=== PATIENT | male | born 1970 ===

== ENCOUNTER 2023-09-02 08:45 | Inpatient (IN) | payer OTHER ==
[~2023-09-02] VITALS: Ht 165.1 cm; Wt 86.2 kg
[2023-09-02] MEDS ORDERED: AVAPRO150 MG PO (09:59)
[2023-09-02 10:16] LABS: HEMATOCRIT 44.2 % (39.0-48.0); HEMOGLOBIN 15.3 g/dL (13-16.00); MEAN CELL VOLUME 84.3 fL (80.0-100.00); MEAN CORPUSCULAR HEMOGLOBIN 29.3 pg (27.00-32.0); MEAN CORPUSCULAR HGB CONC 34.7 g/dl (32.0-36.0); PLATELET COUNT 226 K/uL (150-450); RED BLOOD COUNT 5.24 M/uL (4.00-6.00); RED CELL DISTRIBUTION WIDTH 13.8 % (11.5-14.5)
[2023-09-02 10:37] LABS: INR 0.97; PARTIAL THROMBOPLASTIN TIME 29.9 SECONDS (22.0-34.0); PROTHROMBIN TIME 10.2 SECONDS (9.0-11.5)
[2023-09-02 10:41] LABS: URINE APPEARANCE Clear; URINE BACTERIA 3.7 uL (0.0-1933); URINE BILIRRUBIN Negative (NEGATIVE); URINE BLOOD Negative; URINE COLOR Yellow; URINE EPITHELIAL CELLS 0.9 uL (0.0-38.8); URINE GLUCOSE Negative (NEGATIVE); URINE LEUKOCYTE Negative; URINE NITRATE Negative; URINE PROTEIN Negative (NEGATIVE); URINE RBC 3.3 uL (0.0-20.8); URINE UROBILINOGEN 0.2 E.U./dl; URINE WBC 2.1 uL (0.0-23.2)
[2023-09-02 10:45] LABS: BILIRUBIN TOTAL 0.33 mg/dL (0.3-1.2); CALCIUM 9.9 mg/dL (8.5-10.1); CREATININE SERUM 1.05 mg/dL (0.70-1.30); GFR 73.88; GLOBULINA 4.4 G/DL (2.4-3.5); POTASSIUM 4.79 mEq/L (3.5-5.1); TOTAL PROTEIN 8.4 gm/dL (6.4-8.2)
[2023-09-10] MEDS ORDERED: CEFTRIAXONE SODIUM 2,000 MG VIAL ONE (08:30)
[2023-09-10] MEDS ORDERED: METRONIDAZOLE/SODIUM CHLORIDE 500 MG/100 ML PIGGYBACK IV ONE ×2 (08:30→13:45)
[2023-09-10] MEDS ORDERED: CHLORHEXIDINE GLUCONATE 120 ML BOTTLE TOP ONE (12:13)
[2023-09-10] MEDS ORDERED: TAMSULOSIN HCL 0.4 MG CAP PO SCH (12:21)
[2023-09-10] MEDS ORDERED: LACTOBACILLUS ACIDOPHILUS 1 CAP CAP PO SCH (12:21)
[2023-09-10] MEDS ORDERED: ONDANSETRON HCL 2 MG/ML VIAL IV PRN (12:30)
[2023-09-10] MEDS ORDERED: MORPHINE SULFATE 4 MG/ML VIAL IV PRN (12:30)
[2023-09-10] MEDS ORDERED: RINGERS SOLUTION,LACTATED 1,000 ML IV SCH (12:30)
[2023-09-10] MEDS ORDERED: OxyCODONE HCL 5 MG TABLET (ROXICODONE) PO PRN (12:30)
[2023-09-10] MEDS ORDERED: HYOSCYAMINE SULFATE 0.125 MG TAB.SUBL SL SCH (13:00)
[2023-09-10] MEDS ORDERED: CEFTRIAXONE SODIUM 2,000 MG VIAL IV ONE (13:45)
[2023-09-10] MEDS ORDERED: METRONIDAZOLE/SODIUM CHLORIDE 500 MG/100 ML PIGGYBACK IV SCH (17:00)
[2023-09-10] MEDS ORDERED: GABAPENTIN 300 MG CAPSULE PO SCH (17:00)
[2023-09-10] MEDS ORDERED: ACETAMINOPHEN 500 MG GEL..CAP PO SCH (18:00)
[2023-09-10] MEDS ORDERED: CIPROFLOXACIN IN 5 % DEXTROSE 400 MG/200 ML PIGGYBAG IV SCH (21:00)
[2023-09-10] MEDS ORDERED: FAMOTIDINE/PF 20 MG/2 ML VIAL IV PUSH SCH (21:00)
[2023-09-11] MEDS ORDERED: IRBESARTAN 150 MG TABLET PO SCH (09:00)
[2023-09-11 09:10] LABS: HEMATOCRIT 43.8 % (39.0-48.0); HEMOGLOBIN 15.1 g/dL (13-16.00); MEAN CELL VOLUME 83.6 fL (80.0-100.00); MEAN CORPUSCULAR HEMOGLOBIN 28.8 pg (27.00-32.0); MEAN CORPUSCULAR HGB CONC 34.5 g/dl (32.0-36.0); PLATELET COUNT 200 K/uL (150-450); RED BLOOD COUNT 5.25 M/uL (4.00-6.00)
[2023-09-11 09:17] LABS: ALBUMIN 3.2 gm/dL (3.4-5.0); CALCIUM 8.8 mg/dL (8.5-10.1); CREATININE SERUM 0.99 mg/dL (0.70-1.30); GFR 79.08; PHOSPHOROUS 3.4 mg/dL (2.5-4.9); POTASSIUM 4.04 mEq/L (3.5-5.1)
[2023-09-11] MEDS ORDERED: ENOXAPARIN SODIUM 40 MG/0.4 ML SYRINGE SUBCUTANEO SCH (17:00)
[2023-09-12 07:29] LABS: CALCIUM 8.5 mg/dL (8.5-10.1); CREATININE SERUM 0.95 mg/dL (0.70-1.30); GFR 82.93; MAGNESIUM 1.9 mg/dL (1.8-2.4); PHOSPHOROUS 2.5 mg/dL (2.5-4.9); POTASSIUM 4.01 mEq/L (3.5-5.1)
[2023-09-12 07:32] LABS: HEMATOCRIT 38.5 % (39.0-48.0); HEMOGLOBIN 13.4 g/dL (13-16.00); MEAN CELL VOLUME 82.2 fL (80.0-100.00); MEAN CORPUSCULAR HEMOGLOBIN 28.5 pg (27.00-32.0); MEAN CORPUSCULAR HGB CONC 34.7 g/dl (32.0-36.0); PLATELET COUNT 180 K/uL (150-450); RED BLOOD COUNT 4.69 M/uL (4.00-6.00); RED CELL DISTRIBUTION WIDTH 13.8 % (11.5-14.5)
[2023-09-12] MEDS ORDERED: ENOXAPARIN SODIUM 40 MG/0.4 ML SYRINGE SUBCUTANEO SCH (09:00)
[2023-09-12] MEDS ORDERED: INTESTINEX680 M1 PO (14:04)
[2023-09-12] MEDS ORDERED: HYOSCYAMINE0.125 M1 SL (14:04)
[2023-09-12] MEDS ORDERED: TRAMADOL HCL50 MG PO (14:05)
[2023-09-12] MEDS ORDERED: GABAPENTIN300 M2 PO (14:06)
== END 2023-09-12 15:52 | disposition home or self-care (01) | DRG 330 ==
LOC: O/R 09-10 05:27 → SURG 09-10 07:00 → SURH 09-10 13:13
PROVIDERS: Internal Medicine Geriatric Medicine; ADMIT Surgery; ATTEND Surgery
PROC: BR4FZZZ Ultrasonography of Sacrum and Coccyx (ICD-10-PCS; 2023-09-09)
PROC: 0WQF4ZZ Repair Abdominal Wall, Percutaneous Endoscopic Approach (ICD-10-PCS; 2023-09-10)
PROC: 0DTP4ZZ Resection of Rectum, Percutaneous Endoscopic Approach (ICD-10-PCS; 2023-09-10)
PROC: 0DN84ZZ Release Small Intestine, Percutaneous Endoscopic Approach (ICD-10-PCS; 2023-09-10)
PROC: 0VB Male Reproductive System, Excision (ICD-10-PCS; 2023-09-10)
PROC: 0DQ84ZZ Repair Small Intestine, Percutaneous Endoscopic Approach (ICD-10-PCS; 2023-09-10)
PROC: 0DJD8ZZ Inspection of Lower Intestinal Tract, Via Natural or Artificial Opening Endoscopic (ICD-10-PCS; 2023-09-10)
PROC: 0DBN4ZZ Excision of Sigmoid Colon, Percutaneous Endoscopic Approach (ICD-10-PCS; principal; 2023-09-10 07:00)
DX: Z43.3 Encounter for attention to colostomy (principal); K57.20 Diverticulitis of large intestine with perforation and abscess without bleeding; K91.71 Accidental puncture and laceration of a digestive system organ or structure during a digestive system procedure; K43.5 Parastomal hernia without obstruction or gangrene; K66.0 Peritoneal adhesions (postprocedural) (postinfection); D17.6 Benign lipomatous neoplasm of spermatic cord

== ENCOUNTER 2023-09-02 09:37 | Outpatient (CLI) | payer OTHER ==
[2023-09-02] MEDS ORDERED: AVAPRO150 MG PO (09:59)
== END 2023-09-02 09:45 | disposition home or self-care (01) ==
LOC: RX STUDY 09:37
PROVIDERS: ATTEND Surgery
DX: K57.20 Diverticulitis of large intestine with perforation and abscess without bleeding (principal); Z93.3 Colostomy status; K63.1 Perforation of intestine (nontraumatic); K66.0 Peritoneal adhesions (postprocedural) (postinfection); K56.5 Intestinal adhesions [bands] with obstruction (postinfection)